=== PATIENT | female | born 1945 | race Caucasian/White ===

== ENCOUNTER → 2017-07-15 | Outpatient (CLI) | payer MEDICARE, OTHER | END | disposition home or self-care (01) | LOC: GMAB 10:17 | PROVIDERS: ATTEND Family Medicine | DX: I10 Essential (primary) hypertension (principal) ==

== ENCOUNTER 2018-09-07 10:20 | Emergency (ER) | payer MEDICARE, OTHER ==
[2018-09-07] MEDS ORDERED: SODIUM CHLORIDE 0.9% (FLUSH) 10 ML SYG IV PRN (10:54)
--- NOTE | 2018-09-07 11:23 | ED.PDOC ---
History of Present Illness - General Chief Complaint: Respiratory Problem Stated Complaint: short of breath Time Seen by Provider: 09/07/18 10:34 Source: patient Exam Limitations: no limitations - History of Present Illness Initial Comments: PT PRESENTS TO THE ED AFTER AN EPISODE OF SOB THAT OCCURRED AFTER SHE BENT OVER. PT REPORTS THAT SHE USUALLY FEELS SOB AFTER BENDING OVER BUT IT USUALLY RESOLVES AFTER ABOUT 20 SECONDS. PT REPORTS THAT TODAYS EPISODE WAS MORE PROLONGED AND SHE FEELS THOUGH SHE MAY HAVE HAD A PANIC ATTACK. PT ALSO REPORTS HAVING INFLUENZA AND PNEUMONIA IN JULY BUT STATES THAT SYMPTOMS FROM THAT HAVE RESOLVED. PT DENIES DYSPNEA CURRENTLY. Severity: moderate Activities at Onset: other - BENDING OVER Possible Cause: chronic episodes Improving Factors: rest Worsening Factors: nothing Associated Symptoms: anxiety Respiratory Risk Factors: no cause identified Allergies/Adverse Reactions: Allergies Amlodipine [From Norvasc] Allergy (Mild, Verified 09/07/18 10:38) Vomitting Amoxicillin [From Augmentin] Allergy (Mild, Verified 09/07/18 10:38) Clavulanic Acid [From Augmentin] Allergy (Mild, Verified 09/07/18 10:38) Home Medications: Ambulatory Orders Clonidine HCl 0.1 mg PO TID 08/19/14 Losartan Potassium 50 mg PO BID 08/19/14 Nebivolol HCl [Bystolic] 20 mg PO BID 08/19/14 Simvastatin 40 mg PO DAILY 08/19/14 Minoxidil 5 mg PO DAILY #30 tab 10/02/15 Febuxostat [Uloric] 40 mg PO DAILY 09/07/18 Furosemide 20 mg PO DAILY 09/07/18 Review of Systems - Review of Systems Constitutional: Denies: chills EENTM: Denies: nose congestion, throat pain Respiratory: States: see HPI, short of breath. Denies: cough Cardiology: Denies: chest pain, palpitations, syncope Gastrointestinal/Abdominal: Denies: diarrhea, nausea, vomiting Genitourinary: Denies: dysuria, frequency Musculoskeletal: Denies: joint pain, joint swelling Skin: Denies: dryness, lesions Neurological: Denies: headache, numbness Endocrine: States: no symptoms reported Hematologic/Lymphatic: States: no symptoms reported Past Medical History (General) - Patient Medical History Hx Stroke: No Hx of COPD: No Hx Cardiac Disorders: No Hx Congestive Heart Failure: No Hx Pacemaker: No Hx Hypertension: Yes Hx Diabetes: No Hx Cancer: Yes - Breast cancer Hx MRSA: No Surgical History: Hysterectomy, other - Vaccination History Hx Tetanus, Diphtheria Vaccination: Yes Hx Influenza Vaccination: No Hx Pneumococcal Vaccination: Yes Immunizations Up to Date: Yes - Social History Hx Tobacco Use: No Hx Alcohol Use: No Hx Substance Use: No Hx Substance Use Treatment: No Hx Depression: No Hx Physical Abuse: No Hx Emotional Abuse: No - Female History Patient is a Female of Child Bearing Age (10 -59 yrs old): No Patient : No Family Medical History - Family History Father Family History: No Known Living Status: Unknown Hx Family Hypertension: Yes Hx Cardiac Disease: Yes - [place] Hx Family;Other: at age 72, kidney disease. Physical Exam - Physical Exam General Appearance: Alert, No apparent distress, Well Developed, Well Groomed, Well Hydrated Eyes, Ears, Nose, Throat Exam: normal ENT inspection Neck: supple, normal inspection Respiratory: lungs clear, normal breath sounds, no respiratory distress, no accessory muscle use Cardiovascular/Chest: regular rate, rhythm, no murmur Gastrointestinal/Abdominal: non tender, soft Extremity: normal inspection, no pedal edema Neurologic: normal mood/affect, oriented x 3 Skin Exam: normal color, warm/dry Progress - Progress Progress: 09/07/18 14:04 PT RESTING COMFORTABLY ON RE-EVAL. NO RECURRENCE OF SOB WHILE IN THE ED. PT INSTRUCTED TO TAKE 2 (20MG) LASIX PILLS IF NEEDED FOR SOB. PT INSTRUCTED TO FOLLOW UP WITH PCP UPON ARRIVAL BACK [place]. - Results/Orders Results/Orders: Laboratory Tests 09/07/18 09/07/18 09/07/18 10:54 11:08 11:08 WBC 5.6 RBC 3.56 L Hgb 10.0 L Hct 30.5 L MCV 85.5 MCH 28.1 MCHC 32.9 L RDW 14.8 H Plt Count 158 MPV 7.5 Absolute Neuts (auto) 3.90 Absolute Lymphs (auto) 1.00 Absolute Monos (auto) 0.40 Absolute Eos (auto) 0.30 Absolute Basos (auto) 0.00 Neutrophils % 70.9 Lymphocytes % 17.2 L Monocytes % 6.8 Eosinophils % 4.6 Basophils % 0.5 PT 10.6 INR 1.06 Sodium 138 Potassium 4.1 Chloride 105 Carbon Dioxide 24 Anion Gap 13.1 BUN 28 H Creatinine 1.72 H BUN/Creatinine Ratio 16.3 Random Glucose 117 H Serum Osmolality 282.2 Calcium 8.1 L Total Bilirubin 0.8 AST 18 ALT 12 Alkaline Phosphatase 43 Creatine Kinase CK-MB (CK-2) CK-MB (CK-2) % Troponin I B-Natriuretic Peptide 547.0 H* Serum Total Protein 7.1 Albumin 3.4 Globulin 3.7 H Albumin/Globulin Ratio 0.9 L 09/07/18 11:08 WBC RBC Hgb Hct MCV MCH MCHC RDW Plt Count MPV Absolute Neuts (auto) Absolute Lymphs (auto) Absolute Monos (auto) Absolute Eos (auto) Absolute Basos (auto) Neutrophils % Lymphocytes % Monocytes % Eosinophils % Basophils % PT INR Sodium Potassium Chloride Carbon Dioxide Anion Gap BUN Creatinine BUN/Creatinine Ratio Random Glucose Serum Osmolality Calcium Total Bilirubin AST ALT Alkaline Phosphatase Creatine Kinase 36 CK-MB (CK-2) 1.1 CK-MB (CK-2) % 3.06 Troponin I < 0.02 B-Natriuretic Peptide Serum Total Protein Albumin Globulin Albumin/Globulin Ratio - EKG/XRAY/CT EKG: Sinus - @66BPM, NL AXIS, QTC 480 MS, POOR R WAVE PROGRESSION, nonspecific ST T wave Chg - INFERIOR AND LATERAL LEADS, Unchanged from - 10/02/15 XRAY: chest - MILD CHF PER RAD Departure - Departure Clinical Impression: Congestive heart failure Time of Disposition: 14:02 Disposition: Discharge to Home or Self Care Condition: Good Departure Forms: ED Discharge - Pt. Copy, Patient Portal Self Enrollment Instructions: Heart Failure, Adult (DC) Diet: low salt diet Referrals: Owen Cotton MD [Active Staff] - 1 Week Home Medications: Ambulatory Orders Clonidine HCl 0.1 mg PO TID 08/19/14 Losartan Potassium 50 mg PO BID 08/19/14 Nebivolol HCl [Bystolic] 20 mg PO BID 08/19/14 Simvastatin 40 mg PO DAILY 08/19/14 Minoxidil 5 mg PO DAILY #30 tab 10/02/15 Febuxostat [Uloric] 40 mg PO DAILY 09/07/18 Furosemide 20 mg PO DAILY 09/07/18 Additional Instructions: PT INSTRUCTED TO TAKE 40MG LASIX NEEDED
--- NOTE | 2018-09-07 11:35 | RAD ---
EXAM DESCRIPTION: Chest,1 View CLINICAL HISTORY: 73 years Female, shortness of breath COMPARISON: Radiographs of the chest dated 08/17/2018. TECHNIQUE: AP radiograph of the chest was obtained. FINDINGS: Trachea is midline. The cardiac silhouette is enlarged in size. Mild pulmonary vascular congestion is noted.The lungs are clear with no acute consolidation.No evidence of pleural effusions. IMPRESSION: Enlarged cardiac silhouette and mild pulmonary vascular congestion could represent early changes of congestive heart failure. Electronically signed by: Chau Malik MD 09/07/2018 11:32 AM CDT
[2018-09-07] MEDS ORDERED: FUROSEMIDE INJ 40 MG/4 ML VIAL IV ONE (12:51)
[2018-09-07] MEDS ORDERED: cloNIDine HCL 0.1 MG TAB PO ONE (14:09)
[2018-09-07 14:14] VITALS: TEMP 97.2; O2SAT 96
[2018-09-07 15:23] VITALS: BP 166/88
== END 2018-09-07 15:22 | disposition home or self-care (01) ==
LOC: ER 10:20
DX: I50.9 Heart failure, unspecified (principal); I11.0 Hypertensive heart disease with heart failure; Z85.3 Personal history of malignant neoplasm of breast; Z79.899 Other long term (current) drug therapy; Z88.1 Allergy status to other antibiotic agents; Z88.8 Allergy status to other drugs, medicaments and biological substances; Z87.01 Personal history of pneumonia (recurrent)
CPT/HCPCS: 71045; 80053; 82550; 82553; 83880; 84484; 85025; 85379; 85610; 85730; 93005; 94760; J1940

== ENCOUNTER → 2019-05-17 | Outpatient (CLI) | payer MEDICARE, OTHER | END | disposition home or self-care (01) | LOC: GMAE 10:31 | PROVIDERS: ATTEND Family Medicine | DX: I10 Essential (primary) hypertension (principal); M10.9 Gout, unspecified ==

== ENCOUNTER 2019-06-21 19:58 | Emergency (ER) | payer MEDICARE, OTHER ==
[2019-06-21 20:20] VITALS: O2SAT 97
--- NOTE | 2019-06-21 21:05 | RAD ---
EXAM DESCRIPTION: XR Chest, 2 Views CLINICAL HISTORY: 74 years Female sensation of sob TECHNIQUE: Two views of the chest. COMPARISON: No prior exams provided for comparison. FINDINGS: The lungs are clear without focal consolidation, effusion, or pneumothorax. Again seen is moderate enlargement of the cardiac silhouette without pulmonary vascular prominence. Aortic atherosclerosis. No acute osseous abnormalities. IMPRESSION: Enlarged cardiac silhouette without congestive failure or airspace infiltrate. Electronically signed by: Jaycee Miramontes MD 06/21/2019 9:04 PM DIRECTOR OF STUDENT AFFAIRS
--- NOTE | 2019-06-21 21:17 | ED.PDOC ---
History of Present Illness - General Chief Complaint: Respiratory Problem Stated Complaint: non productive cough past several days Time Seen by Provider: 06/21/19 20:10 Source: patient Exam Limitations: no limitations - History of Present Illness Initial Comments: The patient is a 74-year-old female presenting to the emergency room secondary to sensation of mild shortness of breath for the last 3 or 4 days. She's had a mild clearing cough. A mild runny nose. No sore throat. No fever. No chest pain. No productive cough. She does have a history of long-standing hypertension and is afraid she is having a CHF exacerbation. No increased weight, increased abdominal girth or increased lower extremity edema. No palpitations or chest pain. Timing/Duration: other - 4 days Severity: mild Improving Factors: nothing Worsening Factors: nothing Associated Symptoms: cough Allergies/Adverse Reactions: Allergies Amlodipine [From Norvasc] Allergy (Mild, Verified 09/07/18 10:38) Vomitting Amoxicillin [From Augmentin] Allergy (Mild, Verified 09/07/18 10:38) Clavulanic Acid [From Augmentin] Allergy (Mild, Verified 09/07/18 10:38) Home Medications: Ambulatory Orders Clonidine HCl 0.1 mg PO TID 08/19/14 Losartan Potassium 50 mg PO BID 08/19/14 Nebivolol HCl [Bystolic] 20 mg PO BID 08/19/14 Simvastatin 40 mg PO DAILY 08/19/14 Minoxidil 5 mg PO DAILY #30 tab 10/02/15 Febuxostat [Uloric] 40 mg PO DAILY 09/07/18 Furosemide 20 mg PO DAILY 09/07/18 Review of Systems - Review of Systems Constitutional: States: malaise EENTM: States: nose congestion Respiratory: States: cough, short of breath - very mild Cardiology: States: no symptoms reported Gastrointestinal/Abdominal: States: no symptoms reported Genitourinary: States: no symptoms reported Musculoskeletal: States: no symptoms reported Skin: States: no symptoms reported Neurological: States: anxiety Endocrine: States: no symptoms reported All other Systems: No Change from Baseline Past Medical History (General) - Patient Medical History Hx Stroke: No Hx of COPD: No Hx Cardiac Disorders: No Hx Congestive Heart Failure: Yes Hx Pacemaker: No Hx Hypertension: Yes Hx Diabetes: No Hx Cancer: Yes - Breast cancer, skin Hx MRSA: No - Vaccination History Hx Tetanus, Diphtheria Vaccination: Yes Hx Influenza Vaccination: Yes Hx Pneumococcal Vaccination: Yes - Social History Hx Tobacco Use: No Hx Alcohol Use: No Hx Substance Use: No Hx Substance Use Treatment: No Hx Depression: No Hx Physical Abuse: No Hx Emotional Abuse: No - Female History Patient : No Family Medical History - Family History Father Family History: No Known Living Status: Unknown Hx Family Hypertension: Yes Hx Cardiac Disease: Yes - [place] Hx Family;Other: at age 70, kidney disease. Physical Exam - Physical Exam General Appearance: Alert, Comfortable, No apparent distress Eye Exam: bilateral normal Ears, Nose, Throat: hearing grossly normal, nasal congestion - voice is mildly hoarse Neck: full range of motion, supple Respiratory: lungs clear - clearing cough, normal breath sounds, no respiratory distress, no accessory muscle use Cardiovascular/Chest: normal peripheral pulses, regular rate, rhythm, no edema Peripheral Pulses: radial,right: 2+, radial,left: 2+, dorsalis pedis,right: 2+, dorsalis pedis,left: 2+ Gastrointestinal/Abdominal: non tender, soft Rectal Exam: deferred Back Exam: no CVA tenderness, no vertebral tenderness Extremity: normal range of motion, non-tender, normal inspection, no pedal edema, no calf tenderness, normal capillary refill Neurologic: vice president pharmacy II-XII nml as tested, alert, oriented x 3, other - the patient is anxious Skin Exam: normal color Comments: Vital Signs - 24 hr 06/21/19 20:16 Temperature 96.1 F L Pulse Rate [ 65 Left] Respiratory 20 Rate Blood Pressure 184/84 [Right Arm] O2 Sat by Pulse 97 Oximetry EKG shows normal sinus rhythm at 64 bpm with first-degree AV block. Normal axis. Normal R-wave progression. Prolonged QT interval. LVH criteria is met. No evidence of STEMI. Consistent with EKG from August 2018. No definitive ST segment or T-wave changes indicative of acute ischemia when compared to previous. Chest x-ray shows chronic cardiomegaly but no evidence of fluid overload otherwise. No infiltrate or pneumothorax. No obvious new mass. Progress - Progress Progress: 06/21/19 21:19 the patient's a 74-year-old female presenting to the emergency room secondary to mild shortness of breath over the last few days. I believe most of her symptoms are due to a very mild viral upper respiratory tract infection. Supportive care is recommended at this point. Keep well hydrated. Sleeping with a humidifier for the next few days may prove beneficial. ER warnings were given for any obvious worsening. Keep routine follow-up with primary care doctor. khalida infante [id number] Departure - Departure Clinical Impression: Viral upper respiratory infection Disposition: Discharge to Home or Self Care Condition: Fair Departure Forms: ED Discharge - Pt. Copy, Patient Portal Self Enrollment Instructions: Viral Upper Respiratory Infection, Adult (DC) Diet: regular diet Activity: increase activity as tolerated Referrals: EVARISTO HARDY MD [Primary Care Provider] - 1-2 Weeks Home Medications: Ambulatory Orders Clonidine HCl 0.1 mg PO TID 08/19/14 Losartan Potassium 50 mg PO BID 08/19/14 Nebivolol HCl [Bystolic] 20 mg PO BID 08/19/14 Simvastatin 40 mg PO DAILY 08/19/14 Minoxidil 5 mg PO DAILY #30 tab 10/02/15 Febuxostat [Uloric] 40 mg PO DAILY 09/07/18 Furosemide 20 mg PO DAILY 09/07/18 Additional Instructions: the patient's a 74-year-old female presenting to the emergency room secondary to mild shortness of breath over the last few days. I believe most of her symptoms are due to a very mild viral upper respiratory tract infection. Supportive care is recommended at this point. Keep well hydrated. Sleeping with a humidifier for the next few days may prove beneficial. Blood pressures have normalized on monitoring here. ER warnings were given for any obvious worsening. Keep routine follow-up with primary care doctor.
[2019-06-21 21:36] VITALS: BP 129/53; TEMP 97.2
== END 2019-06-21 21:36 | disposition home or self-care (01) ==
LOC: ER 19:58
DX: J06.9 Acute upper respiratory infection, unspecified (principal); I44.0 Atrioventricular block, first degree; I50.9 Heart failure, unspecified; I45.81 Long QT syndrome; I11.0 Hypertensive heart disease with heart failure; Z85.3 Personal history of malignant neoplasm of breast; Z85.828 Personal history of other malignant neoplasm of skin; Z79.899 Other long term (current) drug therapy; Z88.8 Allergy status to other drugs, medicaments and biological substances; Z88.1 Allergy status to other antibiotic agents

== ENCOUNTER 2019-09-10 | Emergency (ER) | payer MEDICARE, OTHER | END 2019-09-10 15:28 | disposition home or self-care (01) | DX: I10 Essential (primary) hypertension (principal); I48.91 Unspecified atrial fibrillation; I50.9 Heart failure, unspecified; I11.0 Hypertensive heart disease with heart failure; Z85.3 Personal history of malignant neoplasm of breast; Z85.828 Personal history of other malignant neoplasm of skin; Z79.01 Long term (current) use of anticoagulants; Z79.899 Other long term (current) drug therapy; Z88.8 Allergy status to other drugs, medicaments and biological substances; Z88.1 Allergy status to other antibiotic agents ==